=== PATIENT | female | born 1975 | race Caucasian/White ===

== ENCOUNTER 2018-10-10 15:14 | Emergency (ER) | payer MEDICAID ==
[2018-10-10] MEDS: ONDANSETRON (ODT) 4 MG TAB ODT (15:59)
[2018-10-10] MEDS: ACETAMINOPHEN 325 MG TAB PO (15:59)
== END 2018-10-10 17:42 | disposition home or self-care (01) ==
LOC: FTE 17:42
DX: R19.7 Diarrhea, unspecified (principal)
CPT/HCPCS: 99283; Z7502

== ENCOUNTER 2018-10-31 03:30 | Emergency (ER) | payer MEDICAID ==
[2018-10-31 04:11] LABS: ADD MAN DIFF? NO
[2018-10-31 04:14] LABS: BASOPHILS % 0.3 % (0.0-2.0); EOSINOPHILS # 0.1 10^3/ul (0.0-0.5); EOSINOPHILS % 1.5 % (0.0-7.0); HEMATOCRIT 37.1 % (37.0-47.0); HEMOGLOBIN 12.2 g/dl (12.0-16.0); LYMPHOCYTES # 1.9 10^3/ul (0.8-2.9); LYMPHOCYTES % 25.3 % (15.0-51.0); MEAN CORPUSCULAR HEMOGLOBIN 29.6 pg (29.0-33.0); MEAN CORPUSCULAR HGB CONC 32.9 g/dl (32.0-37.0); MEAN PLATELET VOLUME 9.7 fl (7.4-10.4); MONOCYTE # 0.6 10^3/ul (0.3-0.9); MONOCYTES % 8.3 % (0.0-11.0); NEUTROPHIL # 4.8 10^3/ul (1.6-7.5); NEUTROPHILS % 64.1 % (39.0-77.0); PLATELET COUNT 178 10^3/UL (140-415); RED BLOOD COUNT 4.12 10^6/ul (4.20-5.40); RED CELL DISTRIBUTION WIDTH 12.5 % (11.5-14.5)
[2018-10-31 04:14] LABS: WHITE BLOOD COUNT 7.6 10^3/ul (4.8-10.8)
[2018-10-31] MEDS: FAMOTIDINE 20 MG INJ IV (04:26)
[2018-10-31] MEDS: SOD CHLORIDE 0.9% 500 ML IV (04:26)
[2018-10-31] MEDS: ONDANSETRON 4 MG INJ IV (04:26)
[2018-10-31] MEDS: morphine 4 MG/ML VIAL IV (04:27)
[2018-10-31 04:31] LABS: ALANINE AMINOTRANSFERASE 31 IU/L (13-69); ALBUMIN/GLOBULIN RATIO 1.53; ALKALINE PHOSPHATASE 74 IU/L (42-121); ANION GAP 10 (5-13); ASPARTATE AMINO TRANSFERASE 25 IU/L (15-46); BILIRUBIN,INDIRECT 0.3 mg/dl (0-1.1); BILIRUBIN,TOTAL 0.3 mg/dl (0.2-1.3); BLOOD UREA NITROGEN 15 mg/dl (7-20); CARBON DIOXIDE 28 mmol/L (21-31); CHLORIDE 103 mmol/L (97-110); CREATININE 0.54 mg/dl (0.44-1.00); Estimated GFR > 60 mL/min (>60); GLUCOSE 106 mg/dl (70-220); LIPASE 109 U/L (23-300); POTASSIUM 3.4 mmol/L (3.5-5.1); SODIUM 141 mmol/L (135-144); TOTAL PROTEIN 6.6 g/dl (6.1-8.1)
[2018-10-31 04:35] LABS: ADD UMIC YES; UR ASCORBIC ACID NEGATIVE (NEGATIVE); UR BILIRUBIN (Dip) NEGATIVE (NEGATIVE); UR BLOOD (Dip) 1+ mg/dL (NEGATIVE); UR CLARITY SLIGHTLY CLOUDY (CLEAR); UR COLOR YELLOW (YELLOW); UR GLUCOSE (Dip) NEGATIVE (NEGATIVE); UR KETONES (Dip) NEGATIVE (NEGATIVE); UR LEUKOCYTE ESTERASE (Dip) NEGATIVE Leu/ul (NEGATIVE); UR NITRITE (Dip) NEGATIVE (NEGATIVE); UR RBC 1 /HPF (0-5); UR SPECIFIC GRAVITY (Dip) 1.014 (1.003-1.030); UR SQUAMOUS EPITHELIAL CELL FEW /HPF (FEW); UR TOTAL PROTEIN (Dip) NEGATIVE (NEGATIVE); UR UROBILINOGEN (Dip) NEGATIVE (NEGATIVE); UR WBC 0 /HPF (0-5)
== END 2018-10-31 05:55 | disposition home or self-care (01) ==
LOC: E/R 03:30
DX: R10.13 Epigastric pain (principal); R11.10 Vomiting, unspecified
CPT/HCPCS: 36415; 76705; 80053; 81001; 81025; 83690; 85025; 96374; 96375; 99285-25

== ENCOUNTER 2019-06-30 15:56 | Inpatient (IN) | payer MEDICAID ==
[2019-06-30 16:49] LABS: ADD MAN DIFF? NO
[2019-06-30 16:51] LABS: WHITE BLOOD COUNT 9.9 10^3/ul (4.8-10.8)
[2019-06-30 16:51] LABS: BASOPHILS % 0.2 % (0.0-2.0); EOSINOPHILS % 0.4 % (0.0-7.0); HEMATOCRIT 39.6 % (37.0-47.0); HEMOGLOBIN 13.2 g/dl (12.0-16.0); LYMPHOCYTES % 19.7 % (15.0-51.0); MEAN CORPUSCULAR HEMOGLOBIN 30.1 pg (29.0-33.0); MEAN CORPUSCULAR HGB CONC 33.3 g/dl (32.0-37.0); MEAN CORPUSCULAR VOLUME 90.4 fl (82.0-101.0); MEAN PLATELET VOLUME 9.6 fl (7.4-10.4); MONOCYTE # 0.8 10^3/ul (0.3-0.9); NEUTROPHIL # 7.1 10^3/ul (1.6-7.5); NEUTROPHILS % 71.4 % (39.0-77.0); PLATELET COUNT 198 10^3/UL (140-415); RED BLOOD COUNT 4.38 10^6/ul (4.20-5.40); RED CELL DISTRIBUTION WIDTH 12.3 % (11.5-14.5)
[2019-06-30] MEDS ORDERED: ACETAMINOPHEN 325 MG TAB PO ×2 (17:00)
[2019-06-30] MEDS ORDERED: ONDANSETRON 4 MG INJ IV ×3 (17:00→17:30)
[2019-06-30] MEDS: morphine 4 MG/ML VIAL IV (17:07)
[2019-06-30] MEDS: ONDANSETRON 4 MG INJ IV (17:07)
[2019-06-30] MEDS: SOD CHLORIDE 0.9% 1,000 ML IV ×2 (17:07→20:03)
[2019-06-30 17:09] LABS: ALANINE AMINOTRANSFERASE 40 IU/L (13-69); ALBUMIN 4.4 g/dl (3.3-4.9); ALBUMIN/GLOBULIN RATIO 1.33; ALKALINE PHOSPHATASE 64 IU/L (42-121); ANION GAP 8 (5-13); ASPARTATE AMINO TRANSFERASE 28 IU/L (15-46); BILIRUBIN,INDIRECT 0.7 mg/dl (0-1.1); BILIRUBIN,TOTAL 0.7 mg/dl (0.2-1.3); BLOOD UREA NITROGEN 13 mg/dl (7-20); CALCIUM 9.5 mg/dl (8.4-10.2); CARBON DIOXIDE 30 mmol/L (21-31); CHLORIDE 101 mmol/L (97-110); CREATININE 0.61 mg/dl (0.44-1.00); Estimated GFR > 60 mL/min (>60); GLUCOSE 112 mg/dl (70-220); LIPASE 67 U/L (23-300); POTASSIUM 3.9 mmol/L (3.5-5.1); SODIUM 139 mmol/L (135-144); TOTAL PROTEIN 7.7 g/dl (6.1-8.1)
[2019-06-30 17:20] LABS: TROPONIN-I < 0.012 ng/ml (0.000-0.120)
[2019-06-30 17:55] LABS: HEMOGLOBIN A1C 5.1 % (0-5.9)
[2019-06-30 18:28] LABS: INR 1.02; PROTIME 13.5 Sec (11.9-14.9); PT RATIO 1.1
[2019-06-30 18:29] LABS: PARTIAL THROMBOPLASTIN TIME 29.1 Sec (23.0-35.0)
[2019-06-30] MEDS: PIPER-TAZO 3.375 GM IV (PMX) 100 ML IVPB (20:03)
[2019-06-30] MEDS: morphine 2 MG INJ IV (21:31)
[2019-06-30] MEDS: ACETAMINOPHEN 325 MG TAB PO (23:59)
[2019-07-01] MEDS: PIPER-TAZO 3.375 GM IV (PMX) 100 ML IVPB ×5 (00:32→23:54)
[2019-07-01] MEDS: morphine 2 MG INJ IV ×5 (02:36→19:58)
[2019-07-01] MEDS: SOD CHLORIDE 0.9% 1,000 ML IV ×3 (03:30→23:52)
[2019-07-01 06:21] LABS: ADD MAN DIFF? NO
[2019-07-01 06:32] LABS: WHITE BLOOD COUNT 9.5 10^3/ul (4.8-10.8)
[2019-07-01 06:32] LABS: BASOPHILS % 0.2 % (0.0-2.0); EOSINOPHILS % 0.2 % (0.0-7.0); HEMATOCRIT 38.2 % (37.0-47.0); HEMOGLOBIN 12.7 g/dl (12.0-16.0); LYMPHOCYTES # 1.9 10^3/ul (0.8-2.9); LYMPHOCYTES % 19.6 % (15.0-51.0); MEAN CORPUSCULAR HGB CONC 33.2 g/dl (32.0-37.0); MEAN CORPUSCULAR VOLUME 90.3 fl (82.0-101.0); MEAN PLATELET VOLUME 10.3 fl (7.4-10.4); MONOCYTE # 0.8 10^3/ul (0.3-0.9); MONOCYTES % 8.6 % (0.0-11.0); NEUTROPHIL # 6.7 10^3/ul (1.6-7.5); NEUTROPHILS % 70.9 % (39.0-77.0); PLATELET COUNT 181 10^3/UL (140-415); RED BLOOD COUNT 4.23 10^6/ul (4.20-5.40); RED CELL DISTRIBUTION WIDTH 12.5 % (11.5-14.5)
[2019-07-01 06:47] LABS: INR 1.05; PARTIAL THROMBOPLASTIN TIME 29.5 Sec (23.0-35.0); PROTIME 13.8 Sec (11.9-14.9); PT RATIO 1.1
[2019-07-01 06:58] LABS: MAGNESIUM 1.7 mg/dl (1.7-2.5)
[2019-07-01 06:58] LABS: PHOSPHORUS 3.5 mg/dl (2.5-4.9)
[2019-07-01 07:00] LABS: ALANINE AMINOTRANSFERASE 121 IU/L (13-69); ALBUMIN 3.6 g/dl (3.3-4.9); ALKALINE PHOSPHATASE 83 IU/L (42-121); ANION GAP 5 (5-13); ASPARTATE AMINO TRANSFERASE 127 IU/L (15-46); BILIRUBIN,INDIRECT 0.9 mg/dl (0-1.1); BILIRUBIN,TOTAL 0.9 mg/dl (0.2-1.3); BLOOD UREA NITROGEN 8 mg/dl (7-20); CALCIUM 8.4 mg/dl (8.4-10.2); CARBON DIOXIDE 28 mmol/L (21-31); CHLORIDE 104 mmol/L (97-110); CREATININE 0.53 mg/dl (0.44-1.00); Estimated GFR > 60 mL/min (>60); GLUCOSE 123 mg/dl (70-220); POTASSIUM 3.5 mmol/L (3.5-5.1); SODIUM 137 mmol/L (135-144); TOTAL PROTEIN 6.6 g/dl (6.1-8.1)
[2019-07-01] MEDS ORDERED: ONDANSETRON 4 MG INJ IV (08:00)
[2019-07-01] MEDS ORDERED: IPRATROPIUM (NEB) 0.5 MG/2.5 ML AMP HHN (08:00)
[2019-07-01] MEDS ORDERED: MIDAZOLAM 1 MG/ML 2 ML INJ IV (08:00)
[2019-07-01] MEDS ORDERED: MEPERIDINE 25 MG INJ IV (08:00)
[2019-07-01] MEDS ORDERED: EPHEDrine 25 MG/5 ML SYG IV (08:00)
[2019-07-01] MEDS ORDERED: LABETALOL HCL 20MG INJ IV (08:00)
[2019-07-01] MEDS ORDERED: HYDROmorphONE 1 MG/5 ML IV SYRINGE IV (08:00)
[2019-07-01] MEDS ORDERED: OXYCODONE/ACETAMINOPHEN (5/325) TAB PO ×2 (08:00)
[2019-07-01] MEDS ORDERED: DIPHENHYDRAMINE 50 MG INJ IV (08:00)
[2019-07-01] MEDS ORDERED: TRIMETHOBENZAMIDE 100 MG/ML VIAL IM (08:00)
[2019-07-01] MEDS ORDERED: FENTAnyl 50 MCG/ML VIAL IV ×2 (08:00)
[2019-07-01] MEDS ORDERED: ALBUTEROL 0.083% (NEB) 2.5 MG/3 ML AMP HHN (08:00)
[2019-07-01] MEDS ORDERED: hydrALAzine 20 MG INJ IV (08:00)
[2019-07-01] MEDS ORDERED: NEOSTIGMINE 3 MG/3 ML SYRINGE (09:04)
[2019-07-01] MEDS ORDERED: MIDAZOLAM 1 MG/ML 2 ML INJ (09:04)
[2019-07-01] MEDS ORDERED: PROPOFOL 20 ML (09:04)
[2019-07-01] MEDS ORDERED: CEFAZOLIN 1 GM INJ (09:04)
[2019-07-01] MEDS ORDERED: FENTAnyl 50 MCG/ML VIAL ×2 (09:04→09:36)
[2019-07-01] MEDS ORDERED: ROCURONIUM 50 MG INJ (09:04)
[2019-07-01] MEDS ORDERED: GLYCOPYRROLATE 0.4 MG INJ (09:04)
[2019-07-01] MEDS ORDERED: DEXAMETHASONE 4 MG/ML 5 ML INJ (09:05)
[2019-07-01] MEDS ORDERED: ONDANSETRON 4 MG INJ (09:05)
[2019-07-01] MEDS: BUPIVACAINE 0.25%/EPI (SDV) 10 ML INJ (09:38)
[2019-07-01] MEDS ORDERED: SUGAMMADEX SODIUM 200 MG/2 ML VIAL IV (10:03)
[2019-07-01] MEDS ORDERED: morphine 2 MG INJ IV (10:30)
[2019-07-01] MEDS: HYDROmorphONE 1 MG/5 ML IV SYRINGE IV ×3 (10:45→10:57)
[2019-07-01] MEDS: FENTAnyl 50 MCG/ML VIAL IV (11:16)
[2019-07-01 11:46] LABS: CHOLESTEROL 123 mg/dl (100-200)
[2019-07-01 11:46] LABS: CHOL/HDL RATIO 2.7 RATIO; HDL CHOLESTEROL 45 mg/dl (34-88); LDL CHOLESTEROL,CALCULATED 69 mg/dl; TRIGLYCERIDES 43 mg/dl (0-149)
[2019-07-01] MEDS: ONDANSETRON 4 MG INJ IV (11:51)
[2019-07-01] MEDS: OXYCODONE/ACETAMINOPHEN (5/325) TAB PO ×3 (14:33→22:27)
[2019-07-01] MEDS ORDERED: ONDANSETRON (ODT) 4 MG TAB ODT (15:00)
[2019-07-02] MEDS: morphine 2 MG INJ IV ×3 (01:43→22:30)
[2019-07-02] MEDS: NACL 0.9% 3 ML SYG IV (02:37)
[2019-07-02] MEDS: OXYCODONE/ACETAMINOPHEN (5/325) TAB PO ×3 (02:44→12:02)
[2019-07-02] MEDS: SOD CHLORIDE 0.9% 1,000 ML IV (02:45)
[2019-07-02 04:56] LABS: ADD MAN DIFF? NO
[2019-07-02 05:03] LABS: WHITE BLOOD COUNT 12.1 10^3/ul (4.8-10.8)
[2019-07-02 05:03] LABS: BASOPHILS % 0.1 % (0.0-2.0); HEMATOCRIT 32.4 % (37.0-47.0); HEMOGLOBIN 10.7 g/dl (12.0-16.0); LYMPHOCYTES # 1.4 10^3/ul (0.8-2.9); LYMPHOCYTES % 11.6 % (15.0-51.0); MEAN CORPUSCULAR HEMOGLOBIN 30.2 pg (29.0-33.0); MEAN CORPUSCULAR VOLUME 91.5 fl (82.0-101.0); MEAN PLATELET VOLUME 10.1 fl (7.4-10.4); MONOCYTE # 0.9 10^3/ul (0.3-0.9); MONOCYTES % 7.6 % (0.0-11.0); NEUTROPHIL # 9.7 10^3/ul (1.6-7.5); NEUTROPHILS % 80.3 % (39.0-77.0); PLATELET COUNT 189 10^3/UL (140-415); RED BLOOD COUNT 3.54 10^6/ul (4.20-5.40); RED CELL DISTRIBUTION WIDTH 12.6 % (11.5-14.5)
[2019-07-02 05:21] LABS: ALANINE AMINOTRANSFERASE 89 IU/L (13-69); ALBUMIN 3.3 g/dl (3.3-4.9); ALBUMIN/GLOBULIN RATIO 1.13; ALKALINE PHOSPHATASE 57 IU/L (42-121); ANION GAP 5 (5-13); ASPARTATE AMINO TRANSFERASE 55 IU/L (15-46); BILIRUBIN,INDIRECT 0.5 mg/dl (0-1.1); BILIRUBIN,TOTAL 0.5 mg/dl (0.2-1.3); BLOOD UREA NITROGEN 8 mg/dl (7-20); CALCIUM 8.5 mg/dl (8.4-10.2); CARBON DIOXIDE 29 mmol/L (21-31); CHLORIDE 103 mmol/L (97-110); Estimated GFR > 60 mL/min (>60); GLUCOSE 134 mg/dl (70-220); POTASSIUM 3.6 mmol/L (3.5-5.1); SODIUM 137 mmol/L (135-144); TOTAL PROTEIN 6.2 g/dl (6.1-8.1)
[2019-07-02 05:23] LABS: MAGNESIUM 1.8 mg/dl (1.7-2.5)
[2019-07-02] MEDS: PIPER-TAZO 3.375 GM IV (PMX) 100 ML IVPB ×4 (06:40→23:23)
[2019-07-03] MEDS: PIPER-TAZO 3.375 GM IV (PMX) 100 ML IVPB ×3 (05:08→19:25)
[2019-07-03] MEDS: morphine 2 MG INJ IV (05:08)
[2019-07-03 05:25] LABS: ADD MAN DIFF? NO
[2019-07-03 05:35] LABS: BASOPHILS % 0.2 % (0.0-2.0); EOSINOPHILS % 0.2 % (0.0-7.0); HEMATOCRIT 33.5 % (37.0-47.0); HEMOGLOBIN 10.9 g/dl (12.0-16.0); LYMPHOCYTES # 1.7 10^3/ul (0.8-2.9); LYMPHOCYTES % 19.8 % (15.0-51.0); MEAN CORPUSCULAR HEMOGLOBIN 29.9 pg (29.0-33.0); MEAN CORPUSCULAR HGB CONC 32.5 g/dl (32.0-37.0); MEAN CORPUSCULAR VOLUME 91.8 fl (82.0-101.0); MONOCYTE # 0.6 10^3/ul (0.3-0.9); MONOCYTES % 6.5 % (0.0-11.0); NEUTROPHIL # 6.4 10^3/ul (1.6-7.5); NEUTROPHILS % 72.8 % (39.0-77.0); PLATELET COUNT 204 10^3/UL (140-415); RED BLOOD COUNT 3.65 10^6/ul (4.20-5.40)
[2019-07-03 05:35] LABS: WHITE BLOOD COUNT 8.7 10^3/ul (4.8-10.8)
[2019-07-03 06:00] LABS: ALANINE AMINOTRANSFERASE 67 IU/L (13-69); ALBUMIN 3.2 g/dl (3.3-4.9); ALBUMIN/GLOBULIN RATIO 1.03; ALKALINE PHOSPHATASE 60 IU/L (42-121); ANION GAP 4 (5-13); ASPARTATE AMINO TRANSFERASE 35 IU/L (15-46); BILIRUBIN,INDIRECT 0.4 mg/dl (0-1.1); BILIRUBIN,TOTAL 0.4 mg/dl (0.2-1.3); BLOOD UREA NITROGEN 8 mg/dl (7-20); CALCIUM 8.1 mg/dl (8.4-10.2); CARBON DIOXIDE 30 mmol/L (21-31); CHLORIDE 104 mmol/L (97-110); CREATININE 0.51 mg/dl (0.44-1.00); Estimated GFR > 60 mL/min (>60); GLUCOSE 101 mg/dl (70-220); POTASSIUM 3.3 mmol/L (3.5-5.1); SODIUM 138 mmol/L (135-144); TOTAL PROTEIN 6.3 g/dl (6.1-8.1)
[2019-07-03 06:07] LABS: PHOSPHORUS 2.4 mg/dl (2.5-4.9)
[2019-07-03 06:07] LABS: MAGNESIUM 1.9 mg/dl (1.7-2.5)
[2019-07-03] MEDS: POTASSIUM CHLORIDE (SR) 20 MEQ TAB PO (09:49)
[2019-07-03] MEDS: INDOMETHACIN 50 MG SUPP PR (12:20)
[2019-07-03] MEDS ORDERED: IOHEXOL 300MG/ML 30 ML BTL (12:44)
[2019-07-03] MEDS ORDERED: LIDOCAINE 2% (SDV) 5 ML INJ (13:20)
[2019-07-03] MEDS ORDERED: PROPOFOL 20 ML (13:20)
[2019-07-03] MEDS ORDERED: SEVOFLURANE 15 MIN (13:20)
[2019-07-03] MEDS ORDERED: GLYCOPYRROLATE 0.4 MG INJ (13:20)
[2019-07-03] MEDS ORDERED: ROCURONIUM 50 MG INJ (13:20)
[2019-07-03] MEDS ORDERED: SUCCINYLCHOLINE CHLORIDE 100 MG/5 ML SYG IV (13:20)
[2019-07-03] MEDS ORDERED: NEOSTIGMINE 3 MG/3 ML SYRINGE (13:20)
[2019-07-03 13:37] LABS: ADD UMIC YES; UR AMORPHOUS CRYSTAL MODERATE /HPF (NONE SEEN); UR ASCORBIC ACID NEGATIVE (NEGATIVE); UR BILIRUBIN (Dip) NEGATIVE (NEGATIVE); UR BLOOD (Dip) 2+ mg/dL (NEGATIVE); UR CLARITY TURBID (CLEAR); UR COLOR YELLOW (YELLOW); UR GLUCOSE (Dip) NEGATIVE (NEGATIVE); UR KETONES (Dip) NEGATIVE (NEGATIVE); UR LEUKOCYTE ESTERASE (Dip) NEGATIVE Leu/ul (NEGATIVE); UR NITRITE (Dip) NEGATIVE (NEGATIVE); UR RBC 0 /HPF (0-5); UR SPECIFIC GRAVITY (Dip) 1.021 (1.003-1.030); UR SQUAMOUS EPITHELIAL CELL FEW /HPF (FEW); UR TOTAL PROTEIN (Dip) NEGATIVE (NEGATIVE); UR UROBILINOGEN (Dip) NEGATIVE (NEGATIVE); UR WBC 0 /HPF (0-5)
[2019-07-03] MEDS ORDERED: ONDANSETRON 4 MG INJ IV (15:00)
[2019-07-03] MEDS ORDERED: MEPERIDINE 25 MG INJ IV (15:00)
[2019-07-03] MEDS ORDERED: FENTAnyl 50 MCG/ML VIAL IV ×3 (15:00)
[2019-07-03] MEDS ORDERED: DIPHENHYDRAMINE 50 MG INJ IV (15:00)
[2019-07-03] MEDS ORDERED: MIDAZOLAM 1 MG/ML 2 ML INJ IV (15:00)
[2019-07-03] MEDS ORDERED: HYDROmorphONE 1 MG/5 ML IV SYRINGE IV ×2 (15:00)
[2019-07-03] MEDS: METOCLOPRAMIDE 10 MG INJ IV (16:08)
[2019-07-03] MEDS: HYDROmorphONE 1 MG/5 ML IV SYRINGE IV (16:09)
[2019-07-03] MEDS: POTASSIUM CHLORIDE 100 ML IVPB (16:32)
[2019-07-03] MEDS: OXYCODONE/ACETAMINOPHEN (5/325) TAB PO (20:32)
[2019-07-04] MEDS: PIPER-TAZO 3.375 GM IV (PMX) 100 ML IVPB ×4 (01:01→18:01)
[2019-07-04] MEDS: OXYCODONE/ACETAMINOPHEN (5/325) TAB PO ×5 (01:29→20:27)
[2019-07-04 09:01] LABS: ADD MAN DIFF? NO
[2019-07-04 09:04] LABS: BASOPHILS % 0.3 % (0.0-2.0); EOSINOPHILS % 0.4 % (0.0-7.0); HEMATOCRIT 31.8 % (37.0-47.0); HEMOGLOBIN 10.5 g/dl (12.0-16.0); LYMPHOCYTES # 1.9 10^3/ul (0.8-2.9); LYMPHOCYTES % 26.5 % (15.0-51.0); MEAN CORPUSCULAR HEMOGLOBIN 30.3 pg (29.0-33.0); MEAN CORPUSCULAR VOLUME 91.6 fl (82.0-101.0); MEAN PLATELET VOLUME 9.6 fl (7.4-10.4); MONOCYTE # 0.5 10^3/ul (0.3-0.9); MONOCYTES % 7.6 % (0.0-11.0); NEUTROPHIL # 4.5 10^3/ul (1.6-7.5); NEUTROPHILS % 64.8 % (39.0-77.0); PLATELET COUNT 218 10^3/UL (140-415); RED BLOOD COUNT 3.47 10^6/ul (4.20-5.40); RED CELL DISTRIBUTION WIDTH 12.5 % (11.5-14.5)
[2019-07-04 09:36] LABS: ANION GAP 5 (5-13); BLOOD UREA NITROGEN 11 mg/dl (7-20); CALCIUM 8.3 mg/dl (8.4-10.2); CARBON DIOXIDE 28 mmol/L (21-31); CHLORIDE 104 mmol/L (97-110); CREATININE 0.58 mg/dl (0.44-1.00); Estimated GFR > 60 mL/min (>60); GLUCOSE 97 mg/dl (70-220); POTASSIUM 3.6 mmol/L (3.5-5.1); SODIUM 137 mmol/L (135-144)
[2019-07-04 10:31] LABS: ALANINE AMINOTRANSFERASE 76 IU/L (13-69); ALBUMIN 3.2 g/dl (3.3-4.9); ALKALINE PHOSPHATASE 69 IU/L (42-121); ASPARTATE AMINO TRANSFERASE 61 IU/L (15-46); BILIRUBIN,INDIRECT 0.5 mg/dl (0-1.1); BILIRUBIN,TOTAL 0.5 mg/dl (0.2-1.3); TOTAL PROTEIN 6.2 g/dl (6.1-8.1)
[2019-07-04] MEDS: ONDANSETRON 4 MG INJ IV (15:20)
[2019-07-04] MEDS: HEPARIN 5,000 UNIT/1 ML VIAL SC (20:36)
[2019-07-04] MEDS: morphine 2 MG INJ IV (21:02)
[2019-07-04] MEDS: ACETAMINOPHEN 325 MG TAB PO (22:46)
[2019-07-05] MEDS: PIPER-TAZO 3.375 GM IV (PMX) 100 ML IVPB ×5 (01:02→23:48)
[2019-07-05] MEDS: OXYCODONE/ACETAMINOPHEN (5/325) TAB PO ×4 (01:58→23:49)
[2019-07-05 04:54] LABS: ADD MAN DIFF? NO
[2019-07-05 04:59] LABS: WHITE BLOOD COUNT 8.1 10^3/ul (4.8-10.8)
[2019-07-05 04:59] LABS: BASOPHILS % 0.2 % (0.0-2.0); EOSINOPHILS % 0.4 % (0.0-7.0); HEMATOCRIT 32.7 % (37.0-47.0); LYMPHOCYTES # 1.9 10^3/ul (0.8-2.9); LYMPHOCYTES % 23.9 % (15.0-51.0); MEAN CORPUSCULAR HEMOGLOBIN 30.3 pg (29.0-33.0); MEAN CORPUSCULAR HGB CONC 33.6 g/dl (32.0-37.0); MEAN CORPUSCULAR VOLUME 90.1 fl (82.0-101.0); MEAN PLATELET VOLUME 9.5 fl (7.4-10.4); MONOCYTE # 0.5 10^3/ul (0.3-0.9); MONOCYTES % 6.7 % (0.0-11.0); NEUTROPHIL # 5.5 10^3/ul (1.6-7.5); NEUTROPHILS % 68.4 % (39.0-77.0); PLATELET COUNT 235 10^3/UL (140-415); RED BLOOD COUNT 3.63 10^6/ul (4.20-5.40); RED CELL DISTRIBUTION WIDTH 12.2 % (11.5-14.5)
[2019-07-05 05:30] LABS: ALANINE AMINOTRANSFERASE 106 IU/L (13-69); ALBUMIN 3.5 g/dl (3.3-4.9); ALKALINE PHOSPHATASE 79 IU/L (42-121); ANION GAP 5 (5-13); ASPARTATE AMINO TRANSFERASE 94 IU/L (15-46); BILIRUBIN,INDIRECT 0.6 mg/dl (0-1.1); BILIRUBIN,TOTAL 0.6 mg/dl (0.2-1.3); BLOOD UREA NITROGEN 10 mg/dl (7-20); CALCIUM 8.7 mg/dl (8.4-10.2); CARBON DIOXIDE 29 mmol/L (21-31); CHLORIDE 103 mmol/L (97-110); CREATININE 0.57 mg/dl (0.44-1.00); Estimated GFR > 60 mL/min (>60); GLUCOSE 103 mg/dl (70-220); POTASSIUM 3.5 mmol/L (3.5-5.1); SODIUM 137 mmol/L (135-144); TOTAL PROTEIN 6.4 g/dl (6.1-8.1)
[2019-07-05] MEDS: HEPARIN 5,000 UNIT/1 ML VIAL SC ×2 (08:46→21:00)
[2019-07-05] MEDS: morphine 2 MG INJ IV (12:37)
[2019-07-06] MEDS: ONDANSETRON 4 MG INJ IV (03:20)
[2019-07-06] MEDS: HYDROCODONE/APAP (5/325) TAB PO (03:21)
[2019-07-06 05:06] LABS: ADD MAN DIFF? NO
[2019-07-06 05:09] LABS: BASOPHILS % 0.3 % (0.0-2.0); EOSINOPHILS # 0.1 10^3/ul (0.0-0.5); EOSINOPHILS % 0.7 % (0.0-7.0); HEMATOCRIT 33.3 % (37.0-47.0); HEMOGLOBIN 11.1 g/dl (12.0-16.0); LYMPHOCYTES # 1.2 10^3/ul (0.8-2.9); LYMPHOCYTES % 18.4 % (15.0-51.0); MEAN CORPUSCULAR HEMOGLOBIN 30.2 pg (29.0-33.0); MEAN CORPUSCULAR HGB CONC 33.3 g/dl (32.0-37.0); MEAN CORPUSCULAR VOLUME 90.7 fl (82.0-101.0); MEAN PLATELET VOLUME 9.5 fl (7.4-10.4); MONOCYTE # 0.6 10^3/ul (0.3-0.9); MONOCYTES % 8.7 % (0.0-11.0); NEUTROPHIL # 4.8 10^3/ul (1.6-7.5); PLATELET COUNT 226 10^3/UL (140-415); RED BLOOD COUNT 3.67 10^6/ul (4.20-5.40); RED CELL DISTRIBUTION WIDTH 12.2 % (11.5-14.5)
[2019-07-06 05:09] LABS: WHITE BLOOD COUNT 6.7 10^3/ul (4.8-10.8)
[2019-07-06] MEDS: PIPER-TAZO 3.375 GM IV (PMX) 100 ML IVPB ×3 (05:21→18:02)
[2019-07-06 05:36] LABS: ANION GAP 5 (5-13); BLOOD UREA NITROGEN 10 mg/dl (7-20); CALCIUM 8.9 mg/dl (8.4-10.2); CARBON DIOXIDE 30 mmol/L (21-31); CHLORIDE 101 mmol/L (97-110); CREATININE 0.59 mg/dl (0.44-1.00); Estimated GFR > 60 mL/min (>60); GLUCOSE 110 mg/dl (70-220); POTASSIUM 3.5 mmol/L (3.5-5.1); SODIUM 136 mmol/L (135-144)
[2019-07-06 08:24] LABS: ALANINE AMINOTRANSFERASE 112 IU/L (13-69); ALBUMIN 3.5 g/dl (3.3-4.9); ALKALINE PHOSPHATASE 86 IU/L (42-121); ASPARTATE AMINO TRANSFERASE 62 IU/L (15-46); BILIRUBIN,INDIRECT 0.4 mg/dl (0-1.1); BILIRUBIN,TOTAL 0.4 mg/dl (0.2-1.3); TOTAL PROTEIN 6.6 g/dl (6.1-8.1)
[2019-07-06] MEDS: HEPARIN 5,000 UNIT/1 ML VIAL SC ×2 (09:03→20:45)
[2019-07-06] MEDS: OXYCODONE/ACETAMINOPHEN (5/325) TAB PO ×3 (09:10→22:07)
[2019-07-07] MEDS: PIPER-TAZO 3.375 GM IV (PMX) 100 ML IVPB ×4 (00:06→18:22)
[2019-07-07] MEDS: OXYCODONE/ACETAMINOPHEN (5/325) TAB PO ×3 (03:59→21:03)
[2019-07-07 05:28] LABS: ADD MAN DIFF? NO
[2019-07-07 05:32] LABS: BASOPHILS % 0.2 % (0.0-2.0); EOSINOPHILS # 0.1 10^3/ul (0.0-0.5); EOSINOPHILS % 1.3 % (0.0-7.0); HEMATOCRIT 33.7 % (37.0-47.0); HEMOGLOBIN 11.2 g/dl (12.0-16.0); LYMPHOCYTES # 1.6 10^3/ul (0.8-2.9); LYMPHOCYTES % 17.7 % (15.0-51.0); MEAN CORPUSCULAR HEMOGLOBIN 30.1 pg (29.0-33.0); MEAN CORPUSCULAR HGB CONC 33.2 g/dl (32.0-37.0); MEAN CORPUSCULAR VOLUME 90.6 fl (82.0-101.0); MEAN PLATELET VOLUME 9.6 fl (7.4-10.4); MONOCYTE # 0.7 10^3/ul (0.3-0.9); MONOCYTES % 7.5 % (0.0-11.0); NEUTROPHIL # 6.6 10^3/ul (1.6-7.5); NEUTROPHILS % 72.6 % (39.0-77.0); PLATELET COUNT 241 10^3/UL (140-415); RED BLOOD COUNT 3.72 10^6/ul (4.20-5.40); RED CELL DISTRIBUTION WIDTH 12.3 % (11.5-14.5)
[2019-07-07 05:32] LABS: WHITE BLOOD COUNT 9.1 10^3/ul (4.8-10.8)
[2019-07-07 05:55] LABS: ALANINE AMINOTRANSFERASE 121 IU/L (13-69); ALBUMIN 3.5 g/dl (3.3-4.9); ALKALINE PHOSPHATASE 87 IU/L (42-121); ASPARTATE AMINO TRANSFERASE 82 IU/L (15-46); BILIRUBIN,INDIRECT 0.5 mg/dl (0-1.1); BILIRUBIN,TOTAL 0.5 mg/dl (0.2-1.3); TOTAL PROTEIN 6.1 g/dl (6.1-8.1)
[2019-07-07 06:01] LABS: ANION GAP 7 (5-13); BLOOD UREA NITROGEN 12 mg/dl (7-20); CARBON DIOXIDE 28 mmol/L (21-31); CHLORIDE 101 mmol/L (97-110); CREATININE 0.58 mg/dl (0.44-1.00); Estimated GFR > 60 mL/min (>60); GLUCOSE 104 mg/dl (70-220); POTASSIUM 3.2 mmol/L (3.5-5.1); SODIUM 136 mmol/L (135-144)
[2019-07-07] MEDS: HEPARIN 5,000 UNIT/1 ML VIAL SC ×2 (09:22→21:12)
[2019-07-08] MEDS: PIPER-TAZO 3.375 GM IV (PMX) 100 ML IVPB ×4 (00:32→18:00)
[2019-07-08] MEDS: OXYCODONE/ACETAMINOPHEN (5/325) TAB PO ×3 (05:46→18:05)
[2019-07-08 05:59] LABS: ADD MAN DIFF? NO
[2019-07-08 06:08] LABS: BASOPHILS % 0.3 % (0.0-2.0); EOSINOPHILS # 0.2 10^3/ul (0.0-0.5); HEMATOCRIT 33.8 % (37.0-47.0); HEMOGLOBIN 11.2 g/dl (12.0-16.0); LYMPHOCYTES # 1.8 10^3/ul (0.8-2.9); LYMPHOCYTES % 23.4 % (15.0-51.0); MEAN CORPUSCULAR HEMOGLOBIN 30.1 pg (29.0-33.0); MEAN CORPUSCULAR HGB CONC 33.1 g/dl (32.0-37.0); MEAN CORPUSCULAR VOLUME 90.9 fl (82.0-101.0); MEAN PLATELET VOLUME 9.7 fl (7.4-10.4); MONOCYTE # 0.5 10^3/ul (0.3-0.9); MONOCYTES % 6.8 % (0.0-11.0); NEUTROPHILS % 66.8 % (39.0-77.0); PLATELET COUNT 254 10^3/UL (140-415); RED BLOOD COUNT 3.72 10^6/ul (4.20-5.40); RED CELL DISTRIBUTION WIDTH 12.6 % (11.5-14.5)
[2019-07-08 06:08] LABS: WHITE BLOOD COUNT 7.5 10^3/ul (4.8-10.8)
[2019-07-08 06:23] LABS: ALANINE AMINOTRANSFERASE 160 IU/L (13-69); ALBUMIN 3.5 g/dl (3.3-4.9); ALBUMIN/GLOBULIN RATIO 1.09; ALKALINE PHOSPHATASE 114 IU/L (42-121); ANION GAP 8 (5-13); ASPARTATE AMINO TRANSFERASE 117 IU/L (15-46); BILIRUBIN,INDIRECT 0.4 mg/dl (0-1.1); BILIRUBIN,TOTAL 0.4 mg/dl (0.2-1.3); BLOOD UREA NITROGEN 10 mg/dl (7-20); CALCIUM 8.9 mg/dl (8.4-10.2); CARBON DIOXIDE 27 mmol/L (21-31); CHLORIDE 102 mmol/L (97-110); CREATININE 0.54 mg/dl (0.44-1.00); Estimated GFR > 60 mL/min (>60); GLUCOSE 98 mg/dl (70-220); POTASSIUM 3.4 mmol/L (3.5-5.1); SODIUM 137 mmol/L (135-144); TOTAL PROTEIN 6.7 g/dl (6.1-8.1)
[2019-07-08] MEDS: HEPARIN 5,000 UNIT/1 ML VIAL SC (09:02)
== END 2019-07-08 18:31 | disposition home health service (06) | DRG 419 ==
LOC: MS1 07-02 02:13 → E/R 15:56 → 6WM 16:53
PROC: 0FT44ZZ Resection of Gallbladder, Percutaneous Endoscopic Approach (ICD-10-PCS; principal; 2019-07-01 09:10)
PROC: 0F798DZ Dilation of Common Bile Duct with Intraluminal Device, Via Natural or Artificial Opening Endoscopic (ICD-10-PCS; 2019-07-01 09:10)
PROC: BF10YZZ Fluoroscopy of Bile Ducts using Other Contrast (ICD-10-PCS; 2019-07-01 09:10)
DX: K80.12 Calculus of gallbladder with acute and chronic cholecystitis without obstruction (principal); D64.9 Anemia, unspecified; R10.9 Unspecified abdominal pain; E87.6 Hypokalemia; R10.11 Right upper quadrant pain; E66.9 Obesity, unspecified; Z68.30 Body mass index [BMI] 30.0-30.9, adult; Z71.3 Dietary counseling and surveillance
CPT/HCPCS: 36415; 71045; 74176; 74330; 76700; 76705; 78226; 80048; 80053; 80061; 80076; 81001; 81025; 83036; 83690; 83735; 84100; 84484; 85025; 85610; 85730; 86850; 86900; 86901; 87086; 88304; 93005; 99217; 99285-25; G0378

== ENCOUNTER 2019-07-28 16:55 | Emergency (ER) | payer MEDICAID ==
[2019-07-28 17:54] LABS: ADD MAN DIFF? NO
[2019-07-28] MEDS: SOD CHLORIDE 0.9% 1,000 ML IV (17:55)
[2019-07-28] MEDS: ONDANSETRON 4 MG INJ IV (17:55)
[2019-07-28] MEDS: HYDROmorphONE 1 MG/ML SYG IV (17:55)
[2019-07-28 17:59] LABS: BASOPHILS % 0.4 % (0.0-2.0); EOSINOPHILS # 0.1 10^3/ul (0.0-0.5); HEMATOCRIT 36.1 % (37.0-47.0); HEMOGLOBIN 11.8 g/dl (12.0-16.0); LYMPHOCYTES # 1.9 10^3/ul (0.8-2.9); LYMPHOCYTES % 34.6 % (15.0-51.0); MEAN CORPUSCULAR HEMOGLOBIN 30.3 pg (29.0-33.0); MEAN CORPUSCULAR HGB CONC 32.7 g/dl (32.0-37.0); MEAN CORPUSCULAR VOLUME 92.8 fl (82.0-101.0); MEAN PLATELET VOLUME 10.1 fl (7.4-10.4); MONOCYTE # 0.5 10^3/ul (0.3-0.9); MONOCYTES % 9.9 % (0.0-11.0); NEUTROPHIL # 2.9 10^3/ul (1.6-7.5); NEUTROPHILS % 52.9 % (39.0-77.0); PLATELET COUNT 173 10^3/UL (140-415); RED BLOOD COUNT 3.89 10^6/ul (4.20-5.40); RED CELL DISTRIBUTION WIDTH 12.2 % (11.5-14.5)
[2019-07-28 17:59] LABS: WHITE BLOOD COUNT 5.5 10^3/ul (4.8-10.8)
[2019-07-28 18:04] LABS: ADD UMIC YES; UR ASCORBIC ACID NEGATIVE (NEGATIVE); UR BACTERIA FEW /HPF (NONE SEEN); UR BILIRUBIN (Dip) NEGATIVE (NEGATIVE); UR BLOOD (Dip) 1+ mg/dL (NEGATIVE); UR CLARITY CLEAR (CLEAR); UR COLOR STRAW (YELLOW); UR GLUCOSE (Dip) NEGATIVE (NEGATIVE); UR KETONES (Dip) NEGATIVE (NEGATIVE); UR LEUKOCYTE ESTERASE (Dip) NEGATIVE Leu/ul (NEGATIVE); UR NITRITE (Dip) NEGATIVE (NEGATIVE); UR RBC 0 /HPF (0-5); UR SPECIFIC GRAVITY (Dip) 1.006 (1.003-1.030); UR SQUAMOUS EPITHELIAL CELL FEW /HPF (FEW); UR TOTAL PROTEIN (Dip) NEGATIVE (NEGATIVE); UR UROBILINOGEN (Dip) NEGATIVE (NEGATIVE); UR WBC 1 /HPF (0-5)
[2019-07-28 18:16] LABS: ANION GAP 5 (5-13); BLOOD UREA NITROGEN 14 mg/dl (7-20); CALCIUM 9.5 mg/dl (8.4-10.2); CARBON DIOXIDE 30 mmol/L (21-31); CHLORIDE 103 mmol/L (97-110); CREATININE 0.61 mg/dl (0.44-1.00); Estimated GFR > 60 mL/min (>60); GLUCOSE 99 mg/dl (70-220); LIPASE 153 U/L (23-300); POTASSIUM 3.9 mmol/L (3.5-5.1); SODIUM 138 mmol/L (135-144)
[2019-07-28] MEDS: IOHEXOL 300MG/ML 150 ML BTL (18:42)
[2019-07-28] MEDS: SOD CHLORIDE 0.9% 100 ML (18:42)
== END 2019-07-28 20:43 | disposition home or self-care (01) ==
LOC: E/R 16:55
DX: L03.311 Cellulitis of abdominal wall (principal)
CPT/HCPCS: 74177; 80048; 81001; 83690; 84703; 85025; 96374; 96375; 99285-25